=== PATIENT | female | born 1985 | race African-American/Black ===

== ENCOUNTER 2020-03-21 18:23 | Emergency (ER) | payer MEDICARE, MEDICAID | END 2020-03-21 19:05 | disposition left against medical advice (07) | LOC: ER 18:23 | DX: Z53.21 Procedure and treatment not carried out due to patient leaving prior to being seen by health care provider (principal) ==

== ENCOUNTER 2021-09-08 14:54 | Emergency (ER) | payer MEDICARE, MEDICAID ==
[~2021-09-08] VITALS: Ht 167.6 cm; Wt 57.0 kg
[2021-09-08 15:02] VITALS: BP 149/87
[2021-09-08] MEDS ORDERED: CLOT15CR27 TP (15:17)
== END 2021-09-08 15:40 | disposition home or self-care (01) ==
LOC: ER 14:54
DX: L29.9 Pruritus, unspecified (principal)
CPT/HCPCS: 99282